=== PATIENT | female | born 1985 | race Caucasian/White ===

== ENCOUNTER → 2018-05-25 11:30 | Outpatient (CLI) | payer MEDICAID, SELFPAY ==
[2018-05-25 19:30] LABS: Chlamydia Trachomatis by PCR Negative (Negative); Neisserai gonorrhoeae by PCR Negative (Negative); Probe Check PASS; Sample Adequacy Control PASS; Specimen Processing Control PASS
[2018-06-01 12:11] LABS: HPV Reflexed? NOT INDICATED
== END ==
PROVIDERS: Visit Provider Obstetrics & Gynecology
DX: Z34.82 Encounter for supervision of other normal pregnancy, second trimester (principal); Z12.4 Encounter for screening for malignant neoplasm of cervix; Z11.3 Encounter for screening for infections with a predominantly sexual mode of transmission
CPT/HCPCS: 87491; 87591; 88175; G0145

== ENCOUNTER → 2018-06-20 10:00 | Outpatient (CLI) | payer MEDICAID, SELFPAY ==
[2018-06-20 10:59] LABS: Color, Urine Straw (Yellow); Glucose, Dipstick Normal (Normal); Ketone-Dipstick Negative (Negative); Leukocyte Esterase-Dipstick Negative /ul (Negative); Nitrite-Dipstick Negative (Negative); Occult Blood-Urine Negative /ul (Negative); Protein-Dipstick Negative (Negative); Urine Bilirubin Dipstick Negative (Negative); Urine Clarity Clear (Clear); Urine Urobilinogen Normal (Normal)
[2018-06-20 11:14] LABS: Amphetamine Urine VISTA NEGATIVE (<1000 ng/mL); Barbiturate Urine VISTA NEGATIVE (< 200 ng/mL); Benzodiazepine Urine VISTA NEGATIVE (< 200 ng/mL); COTININE Drug Screen Negative (<200 ng/mL); Cocaine Urine VISTA NEGATIVE (< 300 ng/mL); Ecstacy Urine VISTA NEGATIVE (< 500 ng/mL); Methadone Urine VISTA NEGATIVE (< 300 ng/mL); PCP Urine VISTA NEGATIVE (< 25 ng/mL); THC Urine VISTA NEGATIVE (< 50 ng/mL); Vista UDS pH Range 6
[2018-06-20 12:21] LABS: Absolute Lymphocyte Count 2.14 X10^3/ul (0.83-4.51); Absolute Neutrophil Count 6.6 X10^3/uL (2.0-7.7); Basophil# 0.01 X10^3/uL; Basophil% 0.1 % (0-1); Eosinophil# 0.09 X10^3/uL; Eosinophils% 0.9 % (0-5); Hematocrit 37.2 % (37-47); Hemoglobin 12.6 g/dl (12.0-15.0); Lymphocyte # 2.14 X10^3/ul (4.0); Lymphocyte % 22.3 % (19-41); Mean Corp Hgb Conc 33.9 g/gl (32-36); Mean Corpuscular Hgb 32.1 pg (27.0-32.0); Mean Corpuscular Volume 94.9 fL (81-99); Mean Platelet Vol. 9.3 fl (6.2-12.0); Monocyte# 0.72 X10^3/uL; Monocyte% 7.5 % (0-10); Neutrophil # 6.63 X10^3/uL (2.7-7.7); Neutrophil % 69.2 % (47-70); Platelet Count 226 K/mm3 (150-450); RBC Distribution Width CV 13.8 % (11.6-14.6); RBC Distribution Width SD 47.4 fl (35.1-43.9); Red Blood Count 3.92 M/mm3 (4.2-5.4); White Blood Count 9.6 K/mm3 (4.4-11.0)
[2018-06-20 12:24] LABS: POSITIVE COUNT NO; POSITIVE DIFFERENTIAL NO; POSITIVE MORPHOLOGY NO
[2018-06-20 12:49] LABS: Thyroid Stim Hormone (TSH) 3.39 uIU/mL (0.358-3.74)
[2018-06-20 13:26] LABS: HIV - WCH Non-Reactive (Nonreactive); Rubella IgG 78.1 IU/mL
[2018-06-21 09:48] LABS: HEPATITIS B SURFACE AG Negative (Negative); Hep C Antibodies <0.1 s/co ratio (0.0-0.9)
[2018-06-24 02:59] LABS: Prenatal RPR NONREACTIVE (NONREACTIVE)
== END ==
PROVIDERS: Visit Provider Obstetrics & Gynecology
DX: Z34.82 Encounter for supervision of other normal pregnancy, second trimester (principal)
CPT/HCPCS: 36415; 80307; 81002; 84443; 85025; 86703; 86762; 86803; 87340

== ENCOUNTER → 2018-08-15 10:04 | Outpatient (CLI) | payer MEDICAID, SELFPAY ==
[2018-08-15 12:13] LABS: Hematocrit 35.2 % (37-47); Hemoglobin 12.3 g/dl (12.0-15.0); Mean Corp Hgb Conc 34.9 g/gl (32-36); Mean Corpuscular Hgb 33.3 pg (27.0-32.0); Mean Corpuscular Volume 95.4 fL (81-99); Mean Platelet Vol. 9.3 fl (6.2-12.0); Platelet Count 230 K/mm3 (150-450); RBC Distribution Width CV 13.3 % (11.6-14.6); Red Blood Count 3.69 M/mm3 (4.2-5.4); White Blood Count 9.1 K/mm3 (4.4-11.0)
[2018-08-15 12:21] LABS: Scan Indicated on CBC? Y/N NO
[2018-08-15 12:22] LABS: Glucose Challenge Gest 1H 50g 108 mg/dL (70-140)
== END ==
PROVIDERS: Visit Provider Obstetrics & Gynecology
DX: Z34.83 Encounter for supervision of other normal pregnancy, third trimester (principal)
CPT/HCPCS: 36415; 82950; 85027

== ENCOUNTER → 2018-10-05 13:43 | Outpatient (CLI) | payer MEDICAID, SELFPAY ==
--- OUTSIDE RECORDS SUMMARY | 2018-12-10 10:34 | XMS RPT_ITS ---
:1985 Author Organization [facility] Care Team Providers Name Role Phone Mary Hurley Attending Unavailable Mary Hurley Attending Unavailable Mary Hurley Attending Unavailable Mary Hurley Attending Unavailable PROBLEMS PROBLEMS DATE TYPE CONDITION / CODE ATTENDING STATUS SOURCE 10/05/2018 Unknown Z36.85 - Encounter Mary Hurley Active [facility] for Community screening for Hospital Streptococcus B / Repository Z36.85(ICD-10) 08/15/2018 Unknown Z34.83 - Encounter Mary Hurley Active [place] for supervision of Community other normal Hospital , third Repository trimester / Z34.83(ICD-10) 06/20/2018 Unknown Z34.82 - Encounter Mary Hurley Active [place] for supervision of Community other normal Hospital , second Repository trimester / Z34.82(ICD-10) 05/25/2018 Unknown Z12.4 - Encounter Mary Hurley Active [place] for screening for Community malignant neoplasm [facility] cervix / Repository Z12.4(ICD-10) 05/25/2018 Unknown Z11.3 - Encounter Mary Hurley Active [place] for screening for Community infections with a Hospital predominantly Repository sexual mode of transmission / Z11.3(ICD-10) PROCEDURES PROCEDURES No Procedure Records FoundRESULTS RESULTS Observed: 10/05/2018 Status: F Source: [place] CULTURE, GROUP B 11:00 AM [facility] STREPTOCOCCUS REPOSITORY Comments: VAGINAL/RECTAL MADELYN Culture Group B Beta Streptococcus is not isolated. Performed By: #### M100.1800 #### [facility] [address], [address] CBC-COMPLETE BLOOD CNT Collected: 08/15/2018 Status: F Source: [place] NO DIFF 10:18 AM [facility] REPOSITORY TYPE CODE TESTS RESULT OUT OF RANGE REFERENCE UNITS LAB L100.1000 4.4-11.0 K/mm3 Normal WBC 9.1 LAB L100.1200 4.2-5.4 M/mm3 Low RBC 3.69 LAB L100.1300 12.0-15.0 g/dl Normal HGB 12.3 LAB L100.1400 37-47 % Low HCT 35.2 LAB L100.1500 81-99 fL Normal MCV 95.4 LAB L100.1600 27.0-32.0 pg High MCH 33.3 LAB L100.1700 32-36 g/gl Normal MCHC 34.9 LAB L100.1810 11.6-14.6 % Normal RDW CV 13.3 LAB L100.1820 35.1-43.9 fl High RDW SD 44.0 LAB L100.1900 150-450 K/mm3 Normal PLT 230 LAB L100.2000 6.2-12.0 fl Normal MPV 9.3 Performed By: #### L100.0500 #### [facility] [address], [address] GLUCOSE CHALLENGE GEST Collected: 08/15/2018 Status: F Source: [place] 1H 50G 10:18 AM [facility] REPOSITORY TYPE CODE TESTS RESULT OUT OF RANGE REFERENCE UNITS LAB L501.0250 70-140 mg/dL Normal GLU GEST 108 50g 1H Performed By: #### L501.0250 #### [facility] [address] [place], [address] URINE DRUG SCREEN Collected: 06/20/2018 Status: F Source: [place] (VISTA) 10:04 AM [facility] REPOSITORY Order Comment: List of Drugs Taken or Suspected? UNK TYPE CODE TESTS RESULT OUT OF RANGE REFERENCE UNITS LAB L505.0075 TO BE Normal CONFIRMED Result Comment: CONFIRMATORY TESTING FOR ALL POSITIVE URINE DRUG SCREEN RESULTS WILL ONLY BE SENT OUT UPON PHYSICIAN ORDER. [facility] Urine Drug Screen methods provide only preliminary analytical test results. A more specific alternate chemical method must be used in order to obtain a confirmed analytical result. Gas chromatography/mass spectrometery (GC/MS) is the preferred confirmatory method. Clinical consideration and professional judgement should be applied to any drug of abuse test result, particularly when preliminary positive results are used. URINE TCA TESTING MUST BE ORDERED SEPARATELY. USE TEST MNEMONIC: [facility] LAB L505.5005 VISTA UDS PH 6 Normal LAB L505.5015 <1000 ng/mL AMPHETAMINES Normal NEGATIVE LAB L505.5025 < 200 ng/mL BARBITIURATES Normal NEGATIVE LAB L505.5035 < 200 ng/mL BENZODIAZIPINE Normal NEGATIVE LAB L505.5045 < 300 ng/mL COCAINE Normal NEGATIVE LAB L505.5055 < 500 ng/mL ECSTACY Normal NEGATIVE LAB L505.5065 < 300 ng/mL METHADONE Normal NEGATIVE LAB L505.5075 < 300 ng/mL OPIATES Normal NEGATIVE LAB L505.5085 < 25 ng/mL PCP Normal NEGATIVE LAB L505.5095 < 50 ng/mL THC Normal NEGATIVE Performed By: #### L505.5000, L505.6240 #### [facility] [address] [place], [address] NICOTINE URINE DRUG Collected: 06/20/2018 Status: F Source: [place] SCREEN 10:04 AM [facility] REPOSITORY Order Comment: List of Drugs Taken or Suspected? UNK TYPE CODE TESTS RESULT OUT OF RANGE REFERENCE UNITS LAB L505.6250 TO BE Normal CONFIRMED Result Comment: CONFIRMATORY TESTING FOR ALL POSITIVE URINE DRUG SCREEN RESULTS WILL ONLY BE SENT OUT UPON PHYSICIAN ORDER. The results of Urine Drug Screen methods provide only preliminary analytical test results. A more specific alternate chemical method must be used in order to obtain a confirmed analytical result. Gas chromatography/mass spectrometery (GC/MS) is the preferred confirmatory method. Clinical consideration and professional judgement should be applied to any drug of abuse test result, particularly when preliminary positive results are used. LAB L505.6270 <200 ng/mL Normal COT DRG Negative SCREEN Result Comment: Cotinine is the first-stage metabolite of Nicotine. Performed By: #### L505.5000, L505.6240 #### [facility] [address] [place], [place], [id number] URINALYSIS, ROUTINE Collected: 06/20/2018 Status: F Source: [place] (DIPSTICK) 10:04 AM [facility] REPOSITORY Order Comment: How was Urine Obtained? Urine, Random TYPE CODE TESTS RESULT OUT OF RANGE REFERENCE UNITS LAB L400.3000 Yellow COLOR Normal Straw LAB L400.3050 Clear Normal CLARITY Clear LAB L400.3200 Normal mg/dl Normal GLUCOSE, UR Normal LAB L400.3300 Negative mg/dL Normal BILIRUBIN URINE Negative LAB L400.3400 Negative mg/dl Normal KETONE UR Negative LAB L400.3465 1.002-1.030 Normal SP.GR. DIPSTX 1.010 LAB L400.3550 5.0 - 8.0 pH UR Normal 7.0 LAB L400.3600 Negative mg/dl PROT Normal DIPSTX Negative LAB L400.3700 Normal mg/dl Normal UROBILI Normal LAB L400.3750 Negative Normal NITRITE UR Negative LAB L400.3780 Negative /ul Normal OCCULT BLOOD-UR Negative LAB L400.3800 Negative /ul LEUK Normal ESTERASE Negative Performed By: #### L400.2010 #### [facility] [address] [place], [address] CBC W/DIFF, AUTOMATED Collected: 06/20/2018 Status: F Source: [place] 10:04 AM [facility] REPOSITORY TYPE CODE TESTS RESULT OUT OF RANGE REFERENCE UNITS LAB L100.1000 4.4-11.0 K/mm3 Normal WBC 9.6 LAB L100.1200 4.2-5.4 M/mm3 Low RBC 3.92 LAB L100.1300 12.0-15.0 g/dl Normal HGB 12.6 LAB L100.1400 37-47 % Normal HCT 37.2 LAB L100.1500 81-99 fL Normal MCV 94.9 LAB L100.1600 27.0-32.0 pg High MCH 32.1 LAB L100.1700 32-36 g/gl Normal MCHC 33.9 LAB L100.1810 11.6-14.6 % Normal RDW CV 13.8 LAB L100.1820 35.1-43.9 fl High RDW SD 47.4 LAB L100.1900 150-450 K/mm3 Normal PLT 226 LAB L100.2000 6.2-12.0 fl Normal MPV 9.3 LAB L100.2100 47-70 % Normal NEUT% 69.2 LAB L100.2200 19-41 % Normal LY% 22.3 LAB L100.2300 0-10 % Normal MONO% 7.5 LAB L100.2400 0-5 % Normal EO% 0.9 LAB L100.2500 0-1 % Normal BASO% 0.1 LAB L100.2550 0.0-0.9 % Normal IM GRAN % 0.000 Result Comment: IG% - Immature Granulocytes (promyelocytes, myelocytes and metamyelocytes) > 1% indicates that a LEFT SHIFT is Present. LAB L100.2620 2.0-7.7 X10 3/uL Normal Absolute Neut 6.6 LAB L100.2720 0.83-4.51 X10 3/ul Normal Absolute Lymph 2.14 Performed By: #### L100.0100 #### [facility] [address] [place], [place], [id number] THYROID STIM HORMONE Collected: 06/20/2018 Status: F Source: [place] (TSH) 10:04 AM [facility] REPOSITORY TYPE CODE TESTS RESULT OUT OF RANGE REFERENCE UNITS LAB L501.9520 0.358-3.74 uIU/mL Normal TSH 3.39 Performed By: #### L501.9520 #### [facility] [place], [address] RUBELLA IGG Collected: 06/20/2018 Status: F Source: [place] 10:04 [facility] REPOSITORY TYPE CODE TESTS RESULT OUT OF RANGE REFERENCE UNITS LAB L509.4000 IU/mL Normal Rubella IgG 78.1 Result Comment: Antibody results Interpretation of Immune Status < 5 IU/ml Presumed Non-immune 5 - < 10 IU/ml Equivocal > or = 10 IU/ml Presumed Immune Performed By: #### L509.4000, L3890.6005 #### [facility] [address] [place], [address] HIV - WCH Collected: 06/20/2018 Status: F Source: [place] 10:04 AM [facility] REPOSITORY TYPE CODE TESTS RESULT OUT OF RANGE REFERENCE UNITS LAB L3890.6005 Nonreactive Normal HIV - [facility] Non-Reactive Performed By: #### L509.4000, L3890.6005 #### [facility] [address] [place], [address] T AND S-NO Collected: 06/20/2018 Status: F Source: [place] CHARGE W/PNP 10:04 AM [facility] REPOSITORY Order Comment: Reason for Type AND Screen/Red Cells: Surgery? N TYPE CODE TESTS RESULT OUT OF RANGE REFERENCE UNITS LAB B10.0800 A Normal BLOOD POSITIVE TYPE GEL LAB B100.4050 Normal Ab SCREEN NEGATIVE GEL Performed By: #### B100.7550 #### [facility] [address] [place], [place], [address] HEPATITIS B SURFACE Collected: 06/20/2018 Status: F Source: [place] AG 10:04 AM [facility] REPOSITORY TYPE CODE TESTS RESULT OUT OF RANGE REFERENCE UNITS LAB L3100.0400 Negative Normal HB Negative SURF AG Result Comment: Performed at: [facility] [id number] Police Patrol Lieutenant: Ranjan Clement PhD, Phone: [phone] Performed By: #### L3100.0390, L3100.0625 #### [facility] (refer to report for specific site) refer to report for address and phone number HEPATITIS C ANTIBODIES Collected: 06/20/2018 Status: F Source: [place] 10:04 AM [facility] REPOSITORY TYPE CODE TESTS RESULT OUT OF RANGE REFERENCE UNITS LAB L3100.0650 0.0-0.9 s/co ratio Normal HEP C AB <0.1 Result Comment: Negative: < 0.8 Indeterminate: 0.8 - 0.9 Positive: > 0.9 The CDC recommends that a positive HCV antibody result be followed up with a HCV Nucleic Acid Amplification test (096925). Performed By: #### L3100.0390, L3100.0625 #### [facility] (refer to report for specific site) refer to report for address and phone number RPR Collected: 06/20/2018 Status: F Source: [place] 10:04 AM [facility] REPOSITORY TYPE CODE TESTS RESULT OUT OF REFERENCE UNITS RANGE LAB L700.5100 NONREACTIVE Normal RPR NONREACTIVE Performed By: #### L700.5100 #### [facility] [address] [place], [place], [address] CT/NG WCH BY PCR Collected: 05/25/2018 Status: F Source: [place] 11:30 AM [facility] REPOSITORY TYPE CODE TESTS RESULT OUT OF RANGE REFERENCE UNITS LAB L8200.2100 Negative Normal Chlam Negative Trac PCR LAB L8200.2200 Negative Normal NG by Negative PCR Performed By: #### L8200.2000 #### [facility] [address], [address] PAP I-G W/RFX HRHPV Collected: 05/25/2018 Status: F Source: [place] 11:30 AM [facility] REPOSITORY Order Comment: CYTOLOGY INFORMATION: - CLINICAL INFORMATION: - DATE LMP/MENOPAUSE: 01/20/18 LMP - COLLECTION VIAL: Thin Prep Vial - PHOTOSTAT OPERATOR SOURCE: CERVICAL/ENDOCERVICAL - COLLECTION TECHNIQUE: BRUSH/SPATULA Specimen Comment: [id number] Specimen Comment: No. of containers..01 ThinPrep Vial TYPE CODE TESTS RESULT OUT OF RANGE REFERENCE UNITS LAB L7400.0800 . Normal DIAGN Comment Result Comment: NEGATIVE FOR INTRAEPITHELIAL LESION AND MALIGNANCY. THIS SPECIMEN WAS RESCREENED PART OF OUR CABANA ATTENDANT PROGRAM. LAB L7400.0900 . Normal ADEQ Comment Result Comment: Satisfactory for evaluation. Endocervical and/or squamous metaplastic cells (endocervical component) are present. LAB L7400.1400 . Normal PERFORM Comment Result Comment: Keyonna Franklin, Vacation Planner (ASCP) LAB L7400.1500 . Normal QC Comment REV Result Comment: Sarah Evans, Supervisory Vacation Planner (ASCP) LAB L7400.2575 . Normal TEST METHOD Comment Result Comment: This liquid based ThinPrep(R) pap test was screened with the use of an image guided system. LAB L7400.2600 . Normal . COMM LAB L7400.2700 . Normal PAPSMR Comment Result Comment: The Pap smear is a screening test designed to aid in the detection of premalignant and malignant conditions of the uterine cervix. It is not a diagnostic procedure and should not be used as the sole means of detecting cervical cancer. Both false-positive and false-negative reports do occur. LAB L7400.2800 . Normal HPV RFLX Comment Result Comment: The HPV DNA reflex criteria were not met with this specimen result therefore, no HPV testing was performed. Performed at: - [facility] [id number] Police Patrol Lieutenant: Anabel Vinson MD, Phone: [phone] Performed By: #### L7400.0350 #### [facility] (refer to report for specific site) refer to report for address and phone number ALLERGIES ALLERGIES No Allergies Records FoundENCOUNTERS ENCOUNTERS ADMIT/DISCHARGE ACCOUNT ADMITTING ENCOUNTER LOCATION SOURCE NUMBER CLASS 10/05/2018 [id number] Ambulatory [facility] [facility] ing:LAB[facility] Repository 08/15/2018 [id number] Ambulatory [place] [facility] ing:WOBLAB Repository 06/20/2018 [id number] Ambulatory [place] ing:WOBLAB Repository 05/25/2018 [id number] Ambulatory [facility] [facility] ing:[facility] Repository PAYERS PAYERS ENCOUNTER GUARANTOR PAYER SUBSCRIBER SOURCE 10/05/2018 JOSELUIS Primary JOSELUIS WEAVERDOB: [place] [id number] Insurance:[employer] [id number] PLANPolicy Number: Repository [id number]: 330 [id number] (HP) Date:[id number] [address] [place] [id number]: 10/05/2018 Secondary NOT GIVENUNK [place] Insurance:SELF PAY [facility] Number: Effective Repository Date:2018-10-05 08/15/2018 JOSELUIS Primary JOSELUIS WEAVERDOB: [place] [id number] Insurance:[employer] [id number] PLANPolicy Number: Repository [id number]: 330 [id number] (HP) Date:[id number] [address] [place] [id number]: 08/15/2018 Secondary NOT GIVENUNK [place] Insurance:SELF PAY [facility] Number: Effective Repository Date:2018-08-15 06/20/2018 JOSELUIS Primary JOSELUIS GREENWOODDOB: [facility] [id number] Insurance:[employer] [id number] PLANPolicy Number: Repository [id number]: 330 [id number] [id number] () Date:[id number] [address] [place] [id number]: 06/20/2018 Secondary NOT GIVENUNK [place] Insurance:SELF PAY [facility] Number: Effective Repository Date:2018-06-20 05/25/2018 JOSELUIS Primary JOSELUIS WILEYB: [facility] [id number] Insurance:[employer]IS RUN [id number] PLANPolicy Number: Repository [id number]: 330 [id number] 72 () Date:[id number] [address] [place] [address]VB: 05/25/2018 Secondary NOT GIVENUNK [place] Insurance:SELF PAY [facility] Number: Effective Repository Date:2018-05-25
== END ==
PROVIDERS: Visit Provider Obstetrics & Gynecology
DX: Z36.85 Encounter for antenatal screening for Streptococcus B (principal)
CPT/HCPCS: 87081

== ENCOUNTER 2018-10-24 06:45 | Inpatient (IN) | payer MEDICAID, SELFPAY ==
[2018-10-24 06:54] VITALS: BMI 26.0
[2018-10-24 08:03] LABS: Hematocrit 37.4 % (37-47); Hemoglobin 12.7 g/dl (12.0-15.0); Mean Corpuscular Hgb 32.5 pg (27.0-32.0); Mean Corpuscular Volume 95.7 fL (81-99); Mean Platelet Vol. 9.3 fl (6.2-12.0); Platelet Count 184 K/mm3 (150-450); RBC Distribution Width CV 14.1 % (11.6-14.6); RBC Distribution Width SD 48.9 fl (35.1-43.9); Red Blood Count 3.91 M/mm3 (4.2-5.4); White Blood Count 8.3 K/mm3 (4.4-11.0)
[2018-10-24 08:04] LABS: Scan Indicated on CBC? Y/N NO
[2018-10-24] MEDS: Lactated Ringers 1,000 ML 50 ML IV ×3 (08:25→15:48)
[2018-10-24] MEDS: Oxytocin 30 units/NS 500 ml 30 UNITS/500 ML IV.SOLN IV (08:57)
--- NOTE | 2018-10-24 12:41 | PCM.PN.BLA ---
Progress Note 39 3/7 wk induction with h/o rapid labor prior Feeling some cramping, 3-4 / 10 on pain scale Using peanut ball and on L side for now AVSS pitocin at 4 mIU/min EFM 130-140s with avg variability. Accels to 160-170s. mild variables (some with UCs) Category I tracing UCs q 2-5 mins CX: deferred. A/P: 39 3/7 wk induction h/o rapid labor and lives far from hospital. Continue Pitocin , position changes. Anticipate
[2018-10-24] MEDS: fentaNYL-bupivacaine (epidural) 100 ML BAG EPIDURAL (15:17)
[2018-10-24] MEDS: Acetaminophen 325 MG Tablet PO (17:23)
--- NOTE | 2018-10-24 17:26 | PN_ITS ---
Progress Note Induction at 39 3/7 wk with h/o rapid delivery last baby. Lives far from [facility] Epidural in , comfortable with epidural but with ANDRADE with sitting up. AVSS Pitocin at 8 mIU/min EFM reassuring. UCs q 2-5 mins with coupling and spacing CX: 8/mod firm/-2 ? LOP A/P: 39 3/7 wk EGA . Induction Adequate progress. continue pitocin anticipate .
[2018-10-24] MEDS: Oxytocin 30 units/NS 500 ml 30 UNITS/500 ML IV.SOLN 334 UNITS IV (17:50)
--- NOTE | 2018-10-24 17:53 | PCM.OB.VAG ---
Vaginal Delivery Maternal Presentation: Elective Induction 39 3/7 wk induction. Social due to distance from hospital and h/o precipitous labor with last Method of Induction: Pitocin, Amniotomy Amniotic Membrane Rupture Type: Artificial Amniotic Fluid Description: Clear Final BONNY: 10/28/18 Gestational age: 39 Weeks and 3 Days Date of Procedure: 10/24/18 Pre-Operative Diagnosis: 39 3/7 wk Induction Post-Operative Diagnosis: same Surgery/ Procedure Performed: Spontaneous Vaginal Delivery Type of Anesthesia: Epidural Description of Procedure: Vacuum assisted vaginal delivery d/t FHR deceleration noted . Red Farah catheter used to drain bladder 200 cc clear yellow urine noted. epidural in place, comfortable. One pull into green zone resulted in delivery of VTX BRIA. no nuchal cord. Shoulders delivered with Brendon, maternal expulsive effort. Gentle lateral traction and rotation of the anterior shoulder. to maternal abdomen after OP and nares bulb suctioned Male infant Ap 8/9 Spont vigorous cry., Delayed cord clamp and cut. PP exam; Abrasion at posterior perineum. no lacerations. Mild cervical prolapse noted. Placenta delivered by spont expulsion, expression 3V cord, normal appearing, intact with trailing membranes Pt and tolerated delivery well. To recovery, stable condition Sponge counts correct x two EBL 250 cc Presentation: Vertex, BRIA Placental Delivery Description: Spontaneous, Expressed Placenta Disposition: [facility] Cord Vessel Description: 3 Vessels Cord Entanglement: None Estimated Blood Loss: 250 Infant A gender: Male (1 minute): 8 (5 minute): 9 Episiotomy Description: None Laceration: None Medications given after delivery: IV Pitocin Complications: None
--- NOTE | 2018-10-24 17:59 | PCM.DCVAG ---
Discharge Diet: No Restrictions Discharge Activity: May Shower, May Take a Tub Bath May resume sexual activity in: 4-6 weeks Additional Activity Instructions:: Nothing in the vagina for 4-6 weeks. You may return to work/school in 6 weeks. Additional Instructions: If you experience any of the following, contact your healthcare provider. Bleeding that soaks a pad every hour for 2 hours Fever 100.4 or higher Unrelieved abdominal pain Problems urinating (including inability to urinate or burning while urinating). Visual changes Severe headache Flu-like symptoms Pain or redness in one of both of your breasts Pain, warmth, tenderness or swelling in your legs, especially the calf area Frequent nausea and vomiting Symptoms of depression or anxiety If you experience any of the following, call 911 or go to the nearest Emergency Room. Chest pain Problems breathing Seizure activity Partial or complete paralysis of a body part, slurred speech, weakness or drooping of the face, or a sudden inability to walk or hold your balance Allergies/Adverse Reactions: Allergies No Known Allergies Allergy (Verified 10/24/18 07:55) Medications to take at Discharge Prenatabs FA 1 tab PO DAILY 10/24/18 Please Follow Up With: Mary Hurley MD - [phone] When: Call to make an appointment with your doctor in 6 weeks. Primary Care Physician: Clarence Almendarez [Primary Care Provider] - Test Results: Test results from this visit will be discussed in further detail at your follow-up appointment, if applicable. Proposed Discharge Date: 10/25/18
--- NOTE | 2018-10-24 18:01 | DCINST_ITS ---
Discharge Diet: No Restrictions Discharge Activity: May Shower, May Take a Tub Bath May resume sexual activity in: 4-6 weeks Additional Activity Instructions:: Nothing in the vagina for 4-6 weeks. You may return to work/school in 6 weeks. Additional Instructions: If you experience any of the following, contact your healthcare provider. * Bleeding that soaks a pad every hour for 2 hours * Fever 100.4 or higher * Unrelieved abdominal pain * Problems urinating (including inability to urinate or burning while urinating). * Visual changes * Severe headache * Flu-like symptoms * Pain or redness in one of both of your breasts * Pain, warmth, tenderness or swelling in your legs, especially the calf area * Frequent nausea and vomiting * Symptoms of depression or anxiety If you experience any of the following, call 911 or go to the nearest Emergency Room. * Chest pain * Problems breathing * Seizure activity * Partial or complete paralysis of a body part, slurred speech, weakness or drooping of the face, or a sudden inability to walk or hold your balance Allergies/Adverse Reactions: Allergies No Known Allergies Allergy (Verified 10/24/18 07:55) Medications to take at Discharge Prenatabs FA 1 tab PO DAILY 10/24/18 Please Follow Up With: Mary Hurley MD - [phone] When: Call to make an appointment with your doctor in 6 weeks. Primary Care Physician: Clarence Almendarez [Primary Care Provider] - Test Results: Test results from this visit will be discussed in further detail at your follow- up appointment, if applicable. Proposed Discharge Date: 10/25/18
[2018-10-24] MEDS: Oxytocin 30 units/NS 500 ml 30 UNITS/500 ML IV.SOLN 167 UNITS IV (18:20)
[2018-10-24] MEDS: Methylergonovine 0.2 MG/ML Ampul IM (18:43)
[2018-10-24 21:40] VITALS: BP 101/52; PULSE 59; RESP 12; TEMP 37.1
[2018-10-24] MEDS: Ibuprofen 600 MG Tablet PO (23:50)
[2018-10-24] MEDS: 0.9% Saline Lock 10 ML Syringe IV (23:50)
[2018-10-25] VITALS (7 sets, daily range): BP systolic 89–100; BP diastolic 51–54; PULSE 57–91; RESP 14–18; TEMP 36.7–37.2
--- NOTE | 2018-10-25 08:47 | PCM.PN.OB ---
Subjective: PPD#1 Doing well. No ANDRADE. Nursing well. Baby up a lot last night and is a little tired right now. - Physical Exam General: Alert, Oriented x3, Cooperative, No apparent distress HEENT: Atraumatic Neck: Supple Abdomen: Soft - Fundus Firm NT, inferior to umbilicus Neurological: Cranial nerves II-XII grossly intact Psych/Mental Status: Normal Affect Vital Signs Temp Pulse Resp BP 98.4 F 61 17 96/52 L 10/25/18 08:15 10/25/18 08:15 10/25/18 08:15 10/25/18 08:15 Oxygen Delivery Method Room Air Weight: 66.678 kg Body Mass Index (BMI) 26.0 Intake and Output for Last 24 Hours 10/23/18 10/24/18 10/25/18 23:59 23:59 23:59 Intake Total 200 / 200 Output Total 600 / 600 550 / 550 Balance -400 / -400 -550 / -550 Laboratory Tests Past 24 Hrs 10/24/18 07:40 Blood Type A POSITIVE Antibody Screen NEGATIVE Medical Necessity - Tobacco Use Smoking Status: Never smoker Assessment/Plan PPD#1 Stable pp. Continue routine PP care.
[2018-10-25] MEDS: Ibuprofen 600 MG Tablet PO (10:56)
[2018-10-26 01:17] VITALS: BP 92/54; PULSE 58; RESP 18; TEMP 37.1
--- NOTE | 2018-10-26 03:00 | NURSING ---
charge nurse informed of low bp averages (systolic number in the 90s). no interventions at this time. pt denies feeling dizzy and has no symptoms. will continue to monitor.
--- NOTE | 2018-10-26 07:25 | PCM.PN.OB ---
Subjective: PPD#2 Vaginal delivery Doing well. Baby nursing aggressively. Some inc pain with nursing, inc cramping. No concerns otherwise. Plans to go home today. - Physical Exam General: Alert, Oriented x3, Cooperative, No apparent distress HEENT: Atraumatic Neck: Supple Psych/Mental Status: Normal Affect Vital Signs Temp Pulse Resp BP 98.7 F 58 L 18 92/54 L 10/26/18 01:17 10/26/18 01:17 10/26/18 01:17 10/26/18 01:17 Oxygen Delivery Method Room Air Weight: 66.678 kg Body Mass Index (BMI) 26.0 Intake and Output for Last 24 Hours 10/24/18 10/25/18 10/26/18 23:59 23:59 23:59 Intake Total 200 / 200 Output Total 600 / 600 550 / 550 Balance -400 / -400 -550 / -550 Medical Necessity - Tobacco Use Smoking Status: Never smoker Assessment/Plan PPD#2 Stable pp. Dischg home today. RTO in 6 wk for pp check.
[2018-10-26 09:10] VITALS: BP 98/61; PULSE 69; RESP 20; TEMP 36.6; O2SAT 97
--- NOTE | 2018-11-03 13:53 | NURSING ---
follow up phone call no answer. left voicemail.
== END 2018-10-26 11:05 | disposition home or self-care (01) | DRG 560 ==
PROVIDERS: Admitting Provider Obstetrics & Gynecology; Family Provider Family Medicine; PCP Family Medicine; Referring Provider Obstetrics & Gynecology; Visit Provider Obstetrics & Gynecology
DX: O76 Abnormality in fetal heart rate and rhythm complicating labor and delivery (principal); O71.82 Other specified trauma to perineum and vulva; Z3A.39 39 weeks gestation of pregnancy; Z37.0 Single live birth
CPT/HCPCS: 59025; 59050; 85027; 86850; 86900; 99218; J7120; A4216; G0378

== ENCOUNTER 2019-01-05 05:34 | Day surgery (SDC) | payer MEDICAID, SELFPAY ==
--- NOTE | 2018-12-26 10:10 | PCM.HPOB.BLA ---
History and Physical Date of Admission: 01/05/19 Date: 12/25/18 Name: JOSELUIS GREENWOOD Age: 32 HISTORY OF PRESENT ILLNESS: Preoperative History and Physical Joseluis would like to proceed with a tubal for control. Requested we work around her Plan A Drink hosting schedule. Dates given to Sharno. Reviewed R,B,A and permanence of procedure. Discussed L/S BTF, Filshie clip BTO vs L/S bilateral salpingectomy. prefers salpingectomy. EB ALLERGIES: No Known Drug Allergies MEDICATIONS HISTORY: None. REVIEW OF SYSTEMS: GENERAL - Denies fever, or chills SKIN - Denies skin changes EYES - Denies visual changes EARS - Denies difficulty hearing NOSE - Denies nasal congestion or bleeding MOUTH - Denies sore throat or difficulty swallowing NECK - Denies pain or swelling RESPIRATORY - Denies shortness of breath or wheezing CARDIOVASCULAR - Denies palpitations or chest pain GASTROINTESTINAL - Denies nausea, vomiting, diarrhea, constipation GENITOURINARY - Denies dysuria, frequency of urination, incontinence of urine MUSCULOSKELETAL - Denies joint or muscle pain NEUROLOGICAL - Denies localized numbness or weakness PSYCHIATRIC - Denies depression or anxiety ENDOCRINE - Denies heat or cold intolerance, weight loss or gain HEMATO-IMMUNOLOGIC - Denies excessive bleeding with cuts PAST HISTORY: Breast/Ovarian/Colon Cancers - Denies Infections - Chicken pox Illnesses - headaches Accidents - no injuries of consequence History of Abnormal PAPS - Denies Hospitalizations - Childbirth SURGICAL HISTORY: 1. none MENSTRUAL HISTORY: LMP Known?- , LMP - 01/20/18, Age Onset Menarche - 15 PAST PREGNANCIES: Total Pregnancies - 3; Full Term Pregnancies - 3; Premature - 0; Abortions, Induced - 0; Abortions, Spontaneous - 0; Ectopics - 0; Multiple Births - 0; Living Children - 3 FAMILY HISTORY: Maternal Grandparent - Type 2 Diabetes; Maternal Grandparent - Unknown Disease; SOCIAL HISTORY: Alcohol Use - socially not while Smoking - Never Diet - balanced Diet, caffeine > 2 drinks per day and Water intake tries for 2-3 quarts daily. Lifestyle - Exercise - Active with home and kids, Walks 2 miles daily to get child on bus. ([address] Seat Belt Use - Always in front seat. Employer - [employer] Illicit Drug Use - denies use of street drugs Sexual Activity - Residence - lives w and kids Place of - [place] Spouse-Sig Other Name - Nikolai Spouse-Sig Other Occupation - [employer] Spouse-Sig Other Phone No - Work [phone] Children Name(s) - Elidia Cramer Alex Control - wants tubal PHYSICAL EXAMINATION BP- 100/52 Sitting, Right arm, regular cuff Weight- 134.00 lbs Height- 62.00 inch BMI:24.56 CONSTITUTIONAL - NAD, well nourished, and well developed HEENT - Normocephalic, PERRLA, EOMI NECK - no nuchal rigidity EXTREMITIES - No edema or calf tenderness NEUROLOGICAL - Cranial nerves II-XII grossly intact PSYCHIATRIC - A and O to time, place, person, mood and affect ASSESSMENT: 1. Encounter For Sterilization 2. Other Specified Counseling PLAN BY DIAGNOSIS: 1. Other Specified Counseling; Encounter for sterilization Reviewed all options for tubal ligation. Prefers L/S bilateral salpingectomy to potentially decrease risk of ovarian cancer. R,B,A and anticipated preop, operative and postop recovery reviewed. consents signed and on chart. To [facility] as scheduled for L/S Bilateral salpingectomy. RTO in 2 wk after surgery for postop follow up appt.
[2019-01-05] VITALS (8 sets, daily range): BP systolic 92–110; BP diastolic 55–72; PULSE 43–60; RESP 14–16; TEMP 36.3–36.8; O2SAT 95–100; BMI 23.6
--- NOTE | 2019-01-05 | FALS_PTH ---
PATIENT: JOSELUIS GREENWOOD I LOC: [facility] – [place] U#:[id number] AGE/SX: 33/F ROOM: RE01/05/[address]: Dr. Mary Hurley MD : 1985 BED: DIS: 01/05/2019 SPEC #: [id number] RECD: 01/05/19 14:29 STATUS: AGNES ADAMA #: [id number] NGHIA: 01/05/19 00:[address]: Mary Hurley DEPT: SURGICAL PATHOLOGY RECD BY: Randy Leavitt ENTERED: 01/05/19 14:29 SP TYPE: FALL TUBES OTHR DR: Dr. Clarence Almendarez MD Tissues: Fallopian tube Procedures: Surgery Specimen Level II HEADER OPERATION: Laparoscopic salpingectomy PRE-OP DIAGNOSIS: Sterilization request TISSUE SUBMITTED: Bilateral fallopian tubes MICROSCOPIC DIAGNOSIS Bilateral fallopian tubes, salpingectomy: Bilateral fallopian tubes including fimbrial ends, no pathologic diagnosis. FIDEL:bishop 01/06/19 MICROSCOPIC DESCRIPTION Slides are reviewed. GROSS DESCRIPTION Received is one container labeled with the patient's name and designated bilateral fallopian tubes. The specimen consists of two fallopian tubes with an average length of 3.5 cm and has an average diameter of 0.6 cm. Both fallopian tubes have normal fimbriated ends. No mass lesions are identified. Chief Knowledge Officer sections are submitted in two cassettes as follows: 1 - one fallopian tube, 2 - the other fallopian tube. / AM:bishop 01/05/19 TC:[place] CPT: 54792 x2
[2019-01-05 06:05] LABS: Internal QC Validated? YES +Cl - CLEAR BKGD; Pregnancy, Urine Negative Negative
--- NOTE | 2019-01-05 07:18 | PCM.DC.TUB ---
Discharge Diet: No Restrictions Discharge Activity: May Shower, May Take a Tub Bath Return to work on:: 01/06/19 May resume sexual activity in: 1 week Additional Activity Instructions:: Ambulate often the next week after surgery. Nothing in the vagina for 5 days. Call your doctor if you observe: Fever of 101 or Higher, Change in Color, Uncontrolled pain Cleanse incision/area with: Soap & Water, Keep Dressing Clean & Dry Additional Instructions: You may take EITHER two Aleve or three Ibuprofen by mouth every 8 hr as needed for milder pain. Add Acetaminophen/OxyIR as directed for more severe pain. Allergies/Adverse Reactions: Allergies No Known Allergies Allergy (Verified 12/29/18 12:47) Medications to take at Discharge Calcium Carb/D3/Magnesium/Zinc [Lmsbfus-Ryg-Oyzq-Vit D Tablet] 1 each PO DAILY 12/29/18 Pnv No.95/Ferrous Fum/Folic AC [ Caplet] 1 each PO DAILY 12/29/18 Vitamin B Complex 1 each PO DAILY 12/29/18 Oxycodone HCl/Acetaminophen [Percocet 5-325] 1 - 2 tablet PO Q6H PRN PRN 3 Days #10 tablet 01/05/19 The following prescriptions were given: Oxycodone HCl/Acetaminophen [Percocet 5-325] 1 - 2 tablet PO Q6H PRN PRN 3 Days #10 tablet PRN Reason: Moderate Pain Primary Care Physician: Clarence Almendarez [Primary Care Provider] - Test Results: Test results from this visit will be discussed in further detail at your follow-up appointment, if applicable. Please Follow Up With: Mary Hurley MD - [phone] When: in 2 wk for postop check up Proposed Discharge Date: 01/05/19
--- NOTE | 2019-01-05 07:22 | DCINST_ITS ---
Discharge Diet: No Restrictions Discharge Activity: May Shower, May Take a Tub Bath Return to work on:: 01/06/19 May resume sexual activity in: 1 week Additional Activity Instructions:: Ambulate often the next week after surgery. Nothing in the vagina for 5 days. Call your doctor if you observe: Fever of 101 or Higher, Change in Color, Uncontrolled pain Cleanse incision/area with: Soap & Water, Keep Dressing Clean & Dry Additional Instructions: You may take EITHER two Aleve or three Ibuprofen by mouth every 8 hr as needed for milder pain. Add Acetaminophen/OxyIR as directed for more severe pain. Allergies/Adverse Reactions: Allergies No Known Allergies Allergy (Verified 12/29/18 12:47) Medications to take at Discharge Calcium Carb/D3/Magnesium/Zinc [Rfpnqzc-Kid-Zzmt-Vit D Tablet] 1 each PO DAILY 12/29/18 Pnv No.95/Ferrous Fum/Folic AC [ Caplet] 1 each PO DAILY 12/29/18 Vitamin B Complex 1 each PO DAILY 12/29/18 Oxycodone HCl/Acetaminophen [Percocet 5-325] 1 - 2 tablet PO Q6H PRN PRN 3 Days #10 tablet 01/05/19 The following prescriptions were given: Oxycodone HCl/Acetaminophen [Percocet 5-325] 1 - 2 tablet PO Q6H PRN PRN 3 Days #10 tablet PRN Reason: Moderate Pain Primary Care Physician: Clarence Almendarez [Primary Care Provider] - Test Results: Test results from this visit will be discussed in further detail at your follow- up appointment, if applicable. Please Follow Up With: Mary Hurley MD - [phone] When: in 2 wk for postop check up Proposed Discharge Date: 01/05/19
--- NOTE | 2019-01-05 07:24 | PCM.OPRPT ---
Report of Operation Date of Procedure: 01/05/19 Pre-Operative Diagnosis: sterilization request Post-Operative Diagnosis: sterilization request Surgery/Procedure Performed:: Laparoscopic Bilateral salpingectomy Description of Surgical Findings:: Findings: There is a normal-appearing uterus. Fallopian tubes and ovaries are within normal limits. Gross inspection of the bowel, omentum, liver edge are also within normal limits. Photos were taken of the uterus and ovaries after the bilateral partial salpingectomy, and of the right upper quadrant/liver edge. water pump installer: Margy Howe Type of Anesthesia:: General - coteat Anesthesiologist: Ridge Cabrera - YOBANI Specimen's removed: Bilateral fallopian tubes Drains: Red burgos Estimated Blood Loss (mL): 20 Fluids Replaced: LR Description of Procedure: Narrative account: After the risks, benefits, alternatives of the procedure have been reviewed with the patient, informed consent was obtained. The patient was taken to the operating room with an IV running. She was positioned on the operating table in dorsal supine position, where she was given general anesthesia. Once asleep she was repositioned into the dorsal lithotomy position and prepped and draped in the usual sterile fashion. A red Burgos catheter was used to drain the bladder prior to initiating the case. A single-toothed tenaculum and Lanny cannula were placed into the cervix to allow manipulation of the cervix and uterus during the case. Attention was then turned to the anterior abdominal wall where 0.5% percent Marcaine with epinephrine was instilled at the suprapubic and infraumbilical skin and at a point midway between the two, in the midline. Skin incisions were then created in the midline at the suprapubic skin, at the infraumbilical skin, and at a point in the midline midway between the two. While maintaining upward traction of the anterior abdominal wall, a Veress needle was inserted through the umbilical incision into the peritoneal cavity. There was free drop of saline, low opening pressure and free flow of CO2 noted. Once the intra-abdominal pressure had reached 12 mmHg the Veress needle was removed and a bladeless 5 mm trocar was inserted through the infraumbilical skin incision into the peritoneal cavity. Correct placement was confirmed using the scope. Under direct visualization then with the patient in Trendelenburg position, a bladeless 5 mm trocar was inserted in through the suprapubic skin incision into the peritoneal cavity and at the mid-lower abdominal incision midway between the infraumbilical and suprapubic trocars. The uterus was anteverted and both ovaries and fallopian tubes were within normal limits. The right fallopian tube was grasped and retracted medially and using a LigaSure device the right fallopian tube was excised from the ovary and mesosalpinx to the level of the uterine fundus. Excellent hemostasis was noted at the excision site. The right fallopian tube was brought through the suprapubic trocar and set aside for later pathology review. In a similar manner the left fallopian tube was grasped and retracted medially and the fallopian tube was excised and removed from the abdominal cavity through the suprapubic trocar. The fallopian tubes were sent to pathology. Excellent hemostasis was noted by visualization of the pelvis, ovaries, and remaining mesosalpinx. Photos were taken of the uterus and bilateral remaining ovaries and of the right upper quadrant and liver edge. At this point the procedure was terminated. The pneumoperitoneum was reduced and the instruments and trocars were removed from the anterior abdominal wall skin. The skin incisions were closed with 4-0 Monocryl in a subcuticular fashion Dermabond and op sites were applied to the skin. The single-toothed tenaculum and Lanny cannula were then removed from the vagina. The patient was returned to dorsal supine position. She was awakened from general anesthesia. She was transferred to the recovery room bed in stable condition after tolerating the procedure well. Sponge, lap, needle and instrument counts were correct x two. Medications given preop and intra-op included: 10 cc of half percent Marcaine with epinephrine used as a subcutaneous block, and Toradol 30 mg IV x1. For a complete listing of medications given preop and intra-op please see the anesthesia record. - Admit VTE Documentation VTE Present on Admission: No VTE Mechan Device Prophylaxis: SCD's VTE Pharm Prophylaxis ordered?: No
[2019-01-05] MEDS: Bupiv/Epi 0.5% Mpf 30 ML Vial (08:05)
== END 2019-01-05 10:28 | disposition home or self-care (01) ==
LOC: SDC 05:35 → AC 05:37
PROVIDERS: Anesthesiology; Family Provider Family Medicine; PCP Family Medicine; Referring Provider Obstetrics & Gynecology; Visit Provider Obstetrics & Gynecology
PROC: (CPT 58661; principal; 2019-01-05 07:15)
DX: Z30.2 Encounter for sterilization (principal)
CPT/HCPCS: 00840; 58661; 81025; 88302; J7120; J2405